=== PATIENT | female | born 1995 | race American Indian/Alaskan Native ===

== ENCOUNTER 2024-01-03 00:25 | Inpatient (IN) ==
[2024-01-03 03:05] LABS: Urine Benzodiazepine Screen None Detected (None Detect); Urine Cannabinoids Screen None Detected (None Detect); Urine Opiates Screen None Detected (None Detect)
[2024-01-03] MEDS ORDERED: Nalbuphine 10 MG/ML 1 ML VIAL IV PRN (03:54)
[2024-01-03] MEDS ORDERED: Prochlorperazine 5 mg/ml 2 ml VIAL (10 mg) IV PRN (03:54)
[2024-01-03] MEDS ORDERED: Lidocaine 1% VIAL 10 MG/ML 30 ML VIAL INJ PRN (03:54)
[2024-01-03] MEDS: Lactated Ringers 1000 ml BAG 1,000 ML IV SCH (09:30)
[2024-01-03] MEDS: Oxytocin in LR 20,000 MILLI.UNIT/1,000 ML BAG IV SCH (09:30)
[2024-01-03 09:50] LABS: ABS Eosinophils 0.1 10^3/uL (0.0-0.5); ABS Lymphocytes 2.2 10^3/uL (1.0-4.8); ABS Monocytes 0.5 10^3/uL (0.0-0.9); ABS Neutrophils 6.4 10^3/uL (1.5-7.6); ABS Nucleated RBC 0.01 10^3/ul; Eosinophil % 0.6 %; Hematocrit 31.9 % (35-45); Hemoglobin 10.9 g/dL (11.5-14.3); Lymphocyte % 23.6 %; Mean Corpuscular Hemoglobin 27.6 pg (27-33); Mean Corpuscular Hgb Conc 34.2 g/dL (31-36); Mean Corpuscular Volume 80.7 fL (80-97); Mean Platelet Volume 9.1 fL (7.5-11.2); Nucleated Red Blood Cells % 0.1 %/100WBC (0.0-0.8); Platelet Count 409 10^3/uL (150-450); Red Blood Count 3.95 10^6/uL (3.63-4.92); Red Cell Distribution Width 15.4 % (12-17); White Blood Count 9.2 10^3/uL (3.8-11.8)
[2024-01-03] MEDS: Lactated Ringers 1000 ml BAG 1,000 ML IV ONE (14:52)
[2024-01-03] MEDS: OBEPIDURAL (200 ML) 200 ML EPIDURAL ONE (15:08)
[2024-01-03 16:00] LABS: Urine Appearance Clear; Urine Bilirubin Negative (Negative); Urine Blood Negative (Negative); Urine Color Colorless; Urine Glucose Negative (Negative); Urine Ketones Negative (Negative); Urine Nitrite Negative (Negative); Urine Protein Negative (Negative); Urine Specific Gravity 1.011 (1.002-1.030); Urine Urobilinogen Negative (Negative)
[2024-01-03] MEDS ORDERED: Sodium Citrate/Citric Acid LIQ 15 ML UDC PO PRN (16:02)
[2024-01-03] MEDS ORDERED: Phenylephrine 40 mcg/mL 10mL (400mcg) SYRINGE IV PUSH PRN ×2 (16:02)
[2024-01-03] MEDS ORDERED: Glycerin ADULT 2.4 gm SUPP PR PRN (21:06)
[2024-01-03] MEDS ORDERED: Lactated Ringers 1000 ml BAG 1,000 ML IV SCH (22:00)
[2024-01-03] MEDS: Witch Hazel PAD JAR TOPICAL PRN (22:17)
[2024-01-03] MEDS: Dibucaine 1% OINT 28.35 GM TUBE PR PRN (22:17)
[2024-01-03] MEDS: Calcium Carb (TUMS) 500 mg CHEW TAB PO PRN (23:26)
[2024-01-04] MEDS: Oxytocin in LR 20,000 MILLI.UNIT/1,000 ML BAG IV SCH (00:32)
[2024-01-04 07:25] LABS: ABS Eosinophils 0.1 10^3/uL (0.0-0.5); ABS Lymphocytes 2.4 10^3/uL (1.0-4.8); ABS Neutrophils 8.3 10^3/uL (1.5-7.6); Hematocrit 28.1 % (35-45); Hemoglobin 9.1 g/dL (11.5-14.3); Lymphocyte % 20.3 %; Mean Corpuscular Hemoglobin 26.6 pg (27-33); Mean Corpuscular Hgb Conc 32.5 g/dL (31-36); Mean Corpuscular Volume 81.8 fL (80-97); Mean Platelet Volume 8.9 fL (7.5-11.2); Platelet Count 358 10^3/uL (150-450); Red Blood Count 3.44 10^6/uL (3.63-4.92); Red Cell Distribution Width 15.3 % (12-17); White Blood Count 11.8 10^3/uL (3.8-11.8)
[2024-01-04] MEDS: Polyethylene Glycol 3350 17 GM PACKET PO SCH (08:58)
[2024-01-05] MEDS: Buffered Lidocaine 1% SYRIN 1 ml INTRADERM ONE (08:11)
[2024-01-05] MEDS: Lidocaine/Epinephrin 1.5%/200 5 ML AMP INJ ONE (08:11)
[2024-01-05] MEDS: Lactated Ringers 1000 ml BAG 1,000 ML IV SCH (08:12)
[2024-01-05] MEDS: Lactated Ringers 1000 ml BAG 1,000 ML IV ONE (08:12)
[2024-01-05] MEDS: OBEPIDURAL (200 ML) 200 ML EPIDURAL SCH (08:12)
[2024-01-05] MEDS: Lidocaine 1.5% EPI 1:200,000 30 ML SDV ONE (08:12)
[2024-01-05] MEDS: Phenylephrine 40 mcg/mL 10mL (400mcg) SYRINGE ONE (08:12)
[2024-01-05 08:25] VITALS: BP 114/69
== END 2024-01-05 15:28 | disposition home or self-care (01) | DRG 560 ==
LOC: MCHOBOUT 00:25 → MCHOB 01:49
PROVIDERS: ADMIT Obstetrics & Gynecology; ATTEND Obstetrics & Gynecology